=== PATIENT | female | born 1970 | race Caucasian/White ===

== ENCOUNTER 2017-01-24 06:55 | Day surgery (SDC) | payer MEDICARE, OTHER ==
[~2017-01-24] VITALS: Ht 162.6 cm; Wt 95.7 kg
[~2017-01-24 06:55] MED LIST: GLUCOPHAGE500 MG PO; MOTRIN IB200 MG PO; NEXIUM 24HR20 M1 PO; NORCO 5-325 TA1 EACH PO; SYNTHROID25 MCG PO
--- NOTE | 2017-01-24 09:28 | NUR ---
PT SEEMS TO BE RESTING COMFORTABLY IN BED, POLITE, SHORT ANSWERS. CAREGIVER BY PT'S SIDE. BOTH SEEMED TO BE INFORMED, DENIED ANY NEED. DECLINED PRAYER-"HER DAD HAS GIVEN HER A BLESSING ALREADY".
--- NOTE | 2017-01-24 11:33 | NUR ---
01/24/17 1133 Sobia Bee 1126-PATIENT ARRIVED TO PACU ON 10L MASK O2 SAT 99%. PATIENT REACTIVE WITH EYES OPEN. 3 LAP SITES TO ABDOMEN CDI WITH BANDAIDS. SR. CARLIN CATHETER IN PLACE.
--- NOTE | 2017-01-24 12:15 | NUR ---
1205 - PT ARRIVED FROM PACU. FENTANYL RECENTLY GIVEN, PT RATES PAIN AT 5/10 AND QUICKLY FALLS ASLEEP. IV PAIN MEDICATION HELD AT THIS TIME R/T BP AND ASSOCIATE MATERIAL HANDLER RECCOMENDATION. FAMILY CALLED AND AT BEDSIDE BUT PLANNING TO LEAVE FOR LUNCH AND THEN RETURN. TEMP 98.6, BEAR HUGGER TURNED ON FOR WARMTH. PT TOLERATING SIPS OF WATER, REFUSES FOOD AT THIS TIME. PT ARRIVED TO DAY SURGERY WITH CARLIN CATHETER IN PLACE, REPORT STATES CATHETER WAS PLACED IN OR. PT REQUESTS TIME TO REST, BED RAILS UP, CALL LIGHT WITH IN REACH.
--- NOTE | 2017-01-24 12:36 | NUR ---
1235 - PT CALL LIGHT ON. PT REQUESTS SOME PUDDING. PUDDING PROVIDED. PT TOLERATES ABOUT 3 SPOONFULLS AND THEN FALLS BACK TO SLEEP. PAIN MEDICINE OFFERED, PT DECLINES AT THIS TIME. MOTHER IS PRESENT AT BEDSIDE AND AGREES THAT PAIN MEDICINE CAN WAIT FOR A LATER TIME. PT REQUESTS TIME TO TAKE A NAP.
--- NOTE | 2017-01-24 12:54 | NUR ---
HAS EATEN FEW BITES PUDDING AND 1/2 JELLO. TAKING WATER WELL. REQ PAIN RX AND GIVEN FOR PAIN 10/22.
--- NOTE | 2017-01-24 14:09 | NUR ---
1405 - PT RESTING COMFORTABLY AND NOW AWAKE. PT RATES PAIN AT 2/10 AND DENIES NAUSEA. FAMILY NOT AT BEDSIDE. PT TOLERATING PO JELLO AND WATER. CARLIN CATHERTER REMOVED, PT TOLERATED WELL. BED RAILS UP, CALL LIGHT WITHIN REACH.
--- NOTE | 2017-01-24 15:25 | NUR ---
LE 1445: PT UP TO BR W/RN STANDBY. PT UNABLE TO VOID AND PASSES A SMALL BLOOD CLOT INTO HAT. DELLA-PAD AND MESH PANTIES IN PLACE AND PT BACK IN BED. SCDS ON AND IV RECONNECTED. 1520: PT REPORTS "BEING TIRED". PT ENCOURAGED TO REST AND DENIES ADD'L NEEDS @ THIS TIME.
--- NOTE | 2017-01-24 16:24 | NUR ---
IN TO SPEAK W/PATIENT. REQUESTS A BLADDER SCAN OF PATIENT AT 1700 IF NO URINE BY THAT TIME.
--- NOTE | 2017-01-24 16:38 | NUR ---
MORE APPLE JUICE GIVEN.
--- NOTE | 2017-01-24 17:07 | NUR ---
PT BLADDER SCANNED FOR 139 ML. PT DENIES URGE TO VOID. FAMILY @ BS.
--- NOTE | 2017-01-24 17:34 | NUR ---
MD IN TO SEE PATIENT AND INSTRUCTS TO SALINE LOCK PATIENT'S IV AND [place]IENT IS TO BE [place] [facility] [place]. CLEAT LAYER NOTIFIED.
--- NOTE | 2017-01-24 18:13 | NUR ---
PATIENT TO MED SURG ROOM 114 SALINE LOCKED TOLERATING CLEAR LIQUIDS. SHE IS ALERT AND ORIENTED AND ON RA WITH O2 SATS AT 96%. FAMILY IN THE ROOM WITH HER VITALS AND ASSESSMENT COMPLETE AND PATIENT ORIENTED TO HER ROOM. WATER FILLED UP FOR HER AND WARM BLANKET PROVIDED FOR HER. RAILS UP X4 AND ALARM ON THE BED ON. DINNER ORDERED FOR THE PATIENT AT THIS TIME.
--- NOTE | 2017-01-24 18:32 | NUR ---
PT 1 PERSON ASSIST UP TO THE BATHROOM TO VOID, URINE DARK SFOÍA, SCD'S AND IV FLUID STARTED.
--- NOTE | 2017-01-24 19:29 | NUR ---
RECEIVED REPORT FROM DAY SHIFT RN. PATIENT IS RESTING IN BED EATING HER DINNER. PATIENT DENIES ANY PAIN AT THIS TIME. PATIENT DENIES ANY NEEDS. CALL LIGHT IS WITHIN REACH.
--- NOTE | 2017-01-24 21:51 | NUR ---
PATIENT ASSESMENT COMPLETED. PATIENT DENIES ANY PAIN AT THIS TIME. PATIENTS EVENING MEDICATIONS GIVEN PER ORDER. PATIENT ASSISTED TO THE RESTROOM. PATIENT IS A SBA AND IS STEADY ON HER FEET. PATIENT IS NOW BACK IN BED RESTING. PATIENT HAS SCDS ON. PATIENT HAS X3 LAP SITES COVERED BY BANDAIDS. PATIENTS DRESSINGS ARE C/D/I. PATIENT DENIES ANY NEEDS AT THIS TIME. PATIENTS BED ALARM PLACED ON FOR SAFETY AND CALL LIGHT IS WITHIN REACH.
--- NOTE | 2017-01-24 23:31 | NUR ---
PATIENT IS RESTING IN BED WITH EYES CLOSED, RR 17. CALL LIGHT IN REACH AND BED ALARM ON
--- NOTE | 2017-01-25 01:57 | NUR ---
PATIENTS VITALS TAKEN AND RECORDED. PATIENT RATES PAIN AT A 2/10 AND DENIES THE NEED FOR PAIN MEDICATION. PATIENT DENIES ANY FURTHER NEEDS. CALL LIGHT IN REACH AND BED ALARM ON FOR SAFETY.
--- NOTE | 2017-01-25 02:23 | NUR ---
PATIENT CALLED AND STATED "MY BELLY HURTS" PATIENT RATES PAIN AT A 4/10. PATIENT GIVEN PRN PAIN MEDICATION PER ORDER. PATIENT ASSISTED TO THE RESTROOM. PATIENT IS A SBA AND IS STEADY ON HER FEET. PATIENT IS NOW BACK IN BED RESTING AND WATCHING TV. PATIENT DENIES ANY FURTHER NEEDS. CALL LIGHT IS WITHIN REACH.
--- NOTE | 2017-01-25 04:14 | NUR ---
PATIENT IS RESTING IN BED WATCHING TV. PATIENT STATED "I JUST CANT SLEEP IF I'M NOT IN MY OWN BED". PATIENT GIVEN A WARM BLANKET. PATIENT DENIES ANY PAIN AT THIS TIME. PATIENT DENIES ANY FURTHER NEEDS. CALL LIGHT IS WITHIN REACH.
--- NOTE | 2017-01-25 04:35 | NUR ---
PATIENT RESTED ON AND OFF THROUGHOUT THE SHIFT. PATIENT RECEIVED X1 PRN PAIN MEDICATION. PATIENT HAS X3 LAP SITES THAT ARE COVERED W/BANDAIDS, AND DRESSINGS ARE C/D/I. LYRIC IS A SBA AND IS STEADY ON HER FEET. PATIENT IS ON A SOFT/VEGETARIAN DIET AND IS TOLERATING IT WELL. PATIENT IS ABLE TO VOID WITH NO ISSUES AND URINE OUTPUT IS QS. PATIENT IS AAOX3 AND CALLS APPROPRIATELY. PATIENT HAS SCDS IN PLACE.
--- NOTE | 2017-01-25 06:07 | NUR ---
PATIENT GIVEN MRONING MEDICATIONS PER ORDER. PATIENT RATES PAIN AT A 2/10. PATIENT DENIES THE NEED FOR ANY PAIN MEDICATION. PATIENTS WATER REFILLED PER REQUEST. PATIENT DENIES ANY FURTHER NEEDS AT THIS TIME. CALL LIGHT IS WITHIN REACH.
--- NOTE | 2017-01-25 07:25 | NUR ---
REPORT RECEIVED FROM COMMODITY LEAD RN USING 5 P'S. PT RESTING IN BED WATCHING TV. RATES PAIN 3/10. DENIES NEED FOR PAIN MED. WOULD LIKE TO GO HOME TO [place]ED [place]. DENIES NEEDS. CALL LIGHT IN REACH. MD IN TO SEE PT.
[2017-01-25] MEDS ORDERED: NORCO 5-325 TA1 EACH PO (09:24)
--- NOTE | 2017-01-25 09:57 | NUR ---
PT IS SITTING UP ON THE SIDE OF THE BED VISITING WITH FAMILY WAITING TO BE DISCHARGED.
--- NOTE | 2017-01-25 10:21 | NUR ---
PT DC'D HOME WITH MOTHER. VSS. PAIN 08/24. DC INSTRUCTIONS GIVEN TO PT AND MOTHER AND SISTER. ALL QUESTIONS ANSWERED. PHARMACY IN FOR MED COUNSELLING.
--- NOTE | 2017-01-25 10:49 | NUR ---
PT SITTING ON SIDE OF BED, DRESSED AND APPEARS READY FOR DC. HER CG BY HER SIDE. SHE SMILED AND THANKED ME FOR COMING BY DID THE CG. GOD BLESS.
--- NOTE | 2017-02-06 12:56 | OR ---
[facility] [address] [place], [place] [address] Signed DATE OF PROCEDURE: 01/24/17 PREOPERATIVE DIAGNOSES Abnormal uterine bleeding. Mental disability. Dysmenorrhea. Obesity. Osteopenia secondary to prolonged Depo-Provera therapy. POSTOPERATIVE DIAGNOSES Abnormal uterine bleeding. Mental disability. Dysmenorrhea. Obesity. Osteopenia secondary to prolonged Depo-Provera therapy. PROCEDURES PERFORMED Total laparoscopic hysterectomy. Bilateral salpingectomy. Cystourethroscopy. SURGEON: Cheryl Cazares DO VERIFICATION REP: Molly Egan MD ANESTHESIA: General. ESTIMATED BLOOD LOSS: 50 mL. SPECIMENS: Uterus, cervix, bilateral fallopian tubes. FINDINGS Normal external genitalia, normal bladder, bilateral ureteral jets at the end of the procedure. Normal uterus, tubes, ovaries, and appendix. No intraabdominal or pelvic adhesions were noted. COMPLICATIONS: None. INDICATIONS Ms. Mancilla is a very pleasant 46-year-old white G0, P0 female with a history of mental Electronically Signed By: CHERYL CAZARES DO 02/06/17 1256 PATIENT NAME: KELLEY MANCILLA OPERATIVE REPORT DATE OF : 74 PHYSICIAN: CHERYL CAZARES DO REPORT #: [id number] REPORT IS CONFIDENTIAL AND NOT TO BE RELEASED WITHOUT AUTHORIZATION [facility] [address] [place] [id number] Signed disability and heavy periods that have been difficult to care for. She was on Depo-Provera for many years and developed osteopenia. Since stopping the Depo-Provera, the patient has progressively more painful and heavy periods and requested definitive treatment with hysterectomy. The patient's mother is her power of theater manager and has been in all of our appointments and agrees to the plan. Risks, benefits, and alternatives were discussed in detail with the patient and her mother. The patient and her mother understand and wished to proceed with the procedure. TECHNIQUE The patient was taken to the operating room where time-out was performed to confirm the correct patient and correct procedure. General anesthesia was adequately established. The patient was prepped and draped in the dorsal lithotomy position with her feet placed in stirrups. ICPs were on and running, Ancef 2g were given per SCIP protocol. Preoperative heparin was given. Weighted speculum was placed in the vagina and the anterior lip of the cervix was grasped with single tooth tenaculum. A Jarquin catheter was then inserted. The cervix was gently dilated using Hegar dilators and a VCare uterine manipulator was placed. The surgeon's gloves were changed and attention was turned to the abdomen. The base of the umbilicus was infiltrated with 0.25% Marcaine with epinephrine and a 5 mm incision was made at the base of the umbilicus. A 5 mm trocar was placed under direct visualization without complication. A 5 mm assist port was placed in the lower left quadrant under direct visualization without complication. An 8 mm expanding port was placed in the right lower quadrant under direct visualization without complication. A survey of the abdomen and pelvis was performed with normal findings. The left fallopian tube was identified, grasped at the fimbria, and elevated and dissected along the mesosalpinx. The fallopian tube was divided and removed and sent to pathology for further evaluation. The left utero-ovarian ligament was fulgurated and divided with good hemostasis. The round ligament was fulgurated and divided and the leaves of the broad ligament were divided. The medial leaf was brought down to the left uterosacral ligament and the lateral leaf was divided and a bladder flap was created. The left uterine artery was identified, fulgurated, and divided with good hemostasis. The process was repeated on the right with dissection of the fallopian tube along the mesosalpinx. The utero-ovarian ligament, the round ligament, and the leaves of the broad ligament divided without complication. The right uterine artery was identified, fulgurated, and found to be hemostatic. After the bladder flap was pushed well down off the cervix, was used to perform colpotomy along the green edge of the uterine manipulator and the uterus and cervix were divided from the top of the vagina. The uterus and cervix were then delivered through the vagina and the vagina was stuffed with a lap sponge to maintain pneumoperitoneum. The colpotomy was closed using the 0 V-Loc suture in a running nonlocked manner with careful attention to incorporate the uterosacral ligaments bilaterally. Good closure and apical support was noted. The pelvis was irrigated and found to be hemostatic. The trocars were removed and pneumoperitoneum was reduced. The trocar sites were repaired using 4-0 Monocryl in a subcuticular stitch. Electronically Signed By: CHERYL CAZARES DO 02/06/17 1256 PATIENT NAME: KELLEY MANCILLA OPERATIVE REPORT DATE OF : 74 PHYSICIAN: CHERYL CAZARES DO REPORT #: [id number] REPORT IS CONFIDENTIAL AND NOT TO BE RELEASED WITHOUT AUTHORIZATION [address] [address] Signed The bladder was backfilled with approximately 300 mL of normal saline. A 30-degree laparoscope was inserted into the urethra and advanced under direct visualization into the bladder. Normal bladder and urethra was noted. Bilateral ureteral jets were identified. The bladder was drained. The laparoscope was removed and a Jarquin catheter was reinserted. The patient was then taken to the PACU in good and stable condition. Sponge, needle, and instrument count was correct x2 at the end of the procedure. Dr. Egan was present and participated in the procedure. Cheryl Cazares DO JDW/Modl /[id number] cc: MOLLY EGAN MD Electronically Signed By: CHERYL CAZARES DO 02/06/17 1256 PATIENT NAME: KELLEY MANCILLA BRIGITTE OPERATIVE REPORT DATE OF : 74 PHYSICIAN: CHERYL CAZARES DO REPORT #: [id number] REPORT IS CONFIDENTIAL AND NOT TO BE RELEASED WITHOUT AUTHORIZATION
== END 2017-01-25 10:10 | disposition home or self-care (01) ==
LOC: DS 06:55 → MS 18:00 → DS 01-25 10:10
PROVIDERS: Obstetrics & Gynecology
PROC: 0TJB8ZZ Inspection of Bladder, Via Natural or Artificial Opening Endoscopic (ICD-10-PCS; 2017-01-24)
PROC: 0UT94ZZ Resection of Uterus, Percutaneous Endoscopic Approach (ICD-10-PCS; principal; 2017-01-24 08:45)
PROC: 0UTC4ZZ Resection of Cervix, Percutaneous Endoscopic Approach (ICD-10-PCS; 2017-01-24 08:45)
PROC: 0UB74ZZ Excision of Bilateral Fallopian Tubes, Percutaneous Endoscopic Approach (ICD-10-PCS; 2017-01-24 08:45)
DX: N84.1 Polyp of cervix uteri (principal); E66.9 Obesity, unspecified; N88.8 Other specified noninflammatory disorders of cervix uteri; R73.03 Prediabetes; K21.9 Gastro-esophageal reflux disease without esophagitis; Z98.890 Other specified postprocedural states; Z88.2 Allergy status to sulfonamides; Z79.899 Other long term (current) drug therapy; Z68.36 Body mass index [BMI] 36.0-36.9, adult
CPT/HCPCS: 00944; 88305; J0690; J1100; J1644; J1885; J2405; J2704; J3010; J3475; J7120

== ENCOUNTER 2018-03-11 15:03 | Emergency (ER) | payer MEDICARE, OTHER ==
[~2018-03-11] VITALS: Ht 162.6 cm; Wt 95.7 kg
[2018-03-11] MEDS ORDERED: DELTASONE20 MG PO (16:32)
== END 2018-03-11 16:42 | disposition home or self-care (01) ==
LOC: ED 15:03
DX: T78.40XA Allergy, unspecified, initial encounter (principal); Z88.2 Allergy status to sulfonamides; Z79.899 Other long term (current) drug therapy; Z79.84 Long term (current) use of oral hypoglycemic drugs
CPT/HCPCS: 96372; 99283; J1200; J7512

== ENCOUNTER 2018-08-05 18:58 | Emergency (ER) | payer MEDICARE, OTHER ==
[~2018-08-05] VITALS: Ht 162.6 cm; Wt 95.7 kg
[~2018-08-05 18:58] MED LIST changes: +DELTASONE20 MG PO
== END 2018-08-05 22:29 | disposition home or self-care (01) ==
LOC: ED 18:58
DX: G24.9 Dystonia, unspecified (principal); M54.2 Cervicalgia; R68.84 Jaw pain; K21.9 Gastro-esophageal reflux disease without esophagitis; E11.9 Type 2 diabetes mellitus without complications; Z90.710 Acquired absence of both cervix and uterus; Z88.2 Allergy status to sulfonamides; Z79.84 Long term (current) use of oral hypoglycemic drugs; Z79.899 Other long term (current) drug therapy; Z51.81 Encounter for therapeutic drug level monitoring
CPT/HCPCS: 70450; 70491; 80053; 85025; 85610; 85730; 96374; 99284-25; J1200; Q9967